=== PATIENT | female | born 1990 | race Caucasian/White ===

== ENCOUNTER 2024-04-04 10:39 | Emergency (ER) | payer BC ==
[~2024-04-04] VITALS: Ht 167.6 cm; Wt 59.0 kg
[2024-04-04 10:54] VITALS: BP 114/82; TEMP 97.8
[2024-04-04] MEDS ORDERED: KETOROLAC TROMETHAMINE 15 MG/ML VIAL ONE (11:43)
[2024-04-04] MEDS ORDERED: dexaMETHasone SOD PHOSPHATE 1 ML ONE (11:43)
[2024-04-04] MEDS: dexaMETHasone SOD PHOSPHATE 10 MG/ML VIAL IM ONE (11:51)
[2024-04-04] MEDS: KETOROLAC TROMETHAMINE 15 MG/ML VIAL IM ONE (11:52)
[2024-04-04] MEDS ORDERED: AZIT250T13 PO (11:57)
[2024-04-04 12:08] VITALS: O2SAT 98
== END 2024-04-04 12:09 | disposition home or self-care (01) ==
LOC: ER 11:17
DX: J02.9 Acute pharyngitis, unspecified (principal); R59.0 Localized enlarged lymph nodes; F15.10 Other stimulant abuse, uncomplicated; Z88.0 Allergy status to penicillin; Z88.5 Allergy status to narcotic agent; Z88.8 Allergy status to other drugs, medicaments and biological substances; Z91.041 Radiographic dye allergy status
CPT/HCPCS: 99284; 96372 ×2; J1100; J1885